=== PATIENT | male | born 1955 | race African-American/Black ===

== ENCOUNTER 2017-01-14 17:36 | Emergency (ER) | payer OTHER ==
[~2017-01-14] VITALS: Ht 167.6 cm; Wt 65.8 kg
[~2017-01-14 17:36] MED LIST: SULF1TAB24 PO
[2017-01-14 17:40] VITALS: BP 167/88
[2017-01-14] MEDS ORDERED: TRAM50TA PO (17:54)
--- NOTE | 2017-01-14 17:54 | PHYS DOC ---
Past Medical History Past Medical History: High Cholesterol Past Surgical History: No Surgical History Alcohol Use: None Drug Use: None Adult General Chief Complaint Chief Complaint: OTHER COMPLAINTS HPI HPI Patient is a 61 year old male presents to the ED complaining pain to bilateral feet x 2-3 weeks. 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 Describes the pain as sharp. Rates the pain as 5/10. States improved with gel insoles. Denies fever, toe pain, n/v, weakness, calf pain, trauma, swelling , or redness. Review of Systems Review of Systems Constitutional: Denies fever or chills [] Eyes: Denies change in visual acuity, redness, or eye pain [] HENT: Denies nasal congestion or sore throat [] Respiratory: Denies cough or shortness of breath [] Cardiovascular: No additional information not addressed in HPI [] GI: Denies abdominal pain, nausea, vomiting, bloody stools or diarrhea [] : Denies dysuria or hematuria [] Musculoskeletal: Denies back pain. Complains of foot pain. [] Integument: Denies rash or skin lesions [] Neurologic: Denies headache, focal weakness or sensory changes [] Endocrine: Denies polyuria or polydipsia [] Allergies Allergies Allergies Coded Allergies Type Severity Reaction Last Updated Verified No Known Drug Allergies 12/27/15 No Physical Exam Physical Exam Constitutional: Well developed, well nourished, no acute distress, non-toxic appearance. [] HENT: Normocephalic, atraumatic, bilateral external ears normal, oropharynx moist, no oral exudates, nose normal. [] Eyes: PERRLA, EOMI, conjunctiva normal, no discharge. [] Neck: Normal range of motion, no tenderness, supple, no stridor. [] Cardiovascular:Heart rate regular rhythm, no murmur [] Lungs & Thorax: Bilateral breath sounds clear to auscultation [] Abdomen: Bowel sounds normal, soft, no tenderness, no masses, no pulsatile masses. [] Skin: Warm, dry, no erythema, no rash. PLANTAR WART TO BILATERAL FEET. [] Back: No tenderness, no CVA tenderness. [] Extremities: No tenderness, no cyanosis, no clubbing, ROM intact, no edema. [] Neurologic: Alert and oriented X 3, normal motor function, normal sensory function, no focal deficits noted. [] Psychologic: Affect normal, judgement normal, mood normal. [] Current Patient Data Vital Signs Vital Signs Date Time Temp Pulse Resp B/P (MAP) Pulse Ox O2 Delivery O2 Flow Rate FiO2 01/14/17 17:40 98.4 76 16 97 Room Air 98.4 EKG EKG [] Radiology/Procedures Radiology/Procedures [] Course & Med Decision Making Course & Med Decision Making No trauma or bony tenderness. No x-ray warranted. Patient given follow-up for podiatry. Discussed follow-up early next week. Discussed reasons to return to the ED. Patient understands and agrees with plan. Pertinent Labs and Imaging studies reviewed. (See chart for details) [] Dragon Disclaimer Dragon Disclaimer This electronic medical record was generated, in whole or in part, using a voice recognition dictation system. Departure Departure Impression: Primary Impression: Plantar wart of both feet Disposition: 01 HOME, SELF-CARE Condition: STABLE Referrals: NON,STAFF (PCP) EDWIN CRUZ DPM Patient Instructions: Plantar Warts, [id number] Scripts Tramadol Hcl (TRAMADOL HCL) 50 Mg Tablet 1 TAB PO PRN Q6HRS, #12 TAB Prov: ALEJANDRO MARAVILLA 01/14/17 ALEJANDRO MARAVILLA Jan 14, 2017 17:54
== END 2017-01-14 18:01 | disposition home or self-care (01) ==
LOC: ER 17:36
DX: B07.0 Plantar wart (principal)
CPT/HCPCS: 99283